=== PATIENT | female | born 1985 | race Two or more races ===

== ENCOUNTER 2021-07-20 02:26 | Inpatient (IN) | payer OTHER ==
[~2021-07-20] VITALS: Ht 149.9 cm; Wt 80.3 kg
[2021-07-21] MEDS ORDERED: FAMOTIDINE20 MG (08:17)
[2021-07-23] MEDS ORDERED: AMOX-CLAV 875-1 EAC1 PO (18:37)
[2021-07-23] MEDS ORDERED: PEPCID AC20 MG PO (18:37)
[2021-07-23] MEDS ORDERED: INTESTINEX680 M1 PO (18:37)
== END 2021-07-23 22:29 | disposition home or self-care (01) | DRG 391 ==
LOC: ER 02:26 → MEDJ 17:15 → SURH 07-21 18:23
PROVIDERS: ADMIT Internal Medicine Geriatric Medicine; ATTEND Internal Medicine Geriatric Medicine
PROC: BW2110Z Computerized Tomography (CT Scan) of Abdomen and Pelvis using Low Osmolar Contrast, Unenhanced and Enhanced (ICD-10-PCS; principal; 2021-07-20)
PROC: 05HY33Z Insertion of Infusion Device into Upper Vein, Percutaneous Approach (ICD-10-PCS; 2021-07-20)
PROC: 8E0ZXY6 Isolation (ICD-10-PCS; 2021-07-20)
PROC: 4A12X4Z Monitoring of Cardiac Electrical Activity, External Approach (ICD-10-PCS; 2021-07-20)
DX: K57.92 Diverticulitis of intestine, part unspecified, without perforation or abscess without bleeding (principal); K85.90 Acute pancreatitis without necrosis or infection, unspecified; Z20.822 Contact with and (suspected) exposure to COVID-19

== ENCOUNTER 2021-08-06 18:43 | Emergency (ER) | payer OTHER ==
[~2021-08-06] VITALS: Ht 149.9 cm; Wt 78.5 kg
[~2021-08-06 18:43] MED LIST: AMOX-CLAV 875-1 EAC1 PO; FAMOTIDINE20 MG; INTESTINEX680 M1 PO; PEPCID AC20 MG PO
[2021-08-06] MEDS ORDERED: INTESTINEX680 M1 PO (22:19)
[2021-08-06] MEDS ORDERED: AMOX-CLAV 875-1 EACH PO (22:19)
[2021-08-06] MEDS ORDERED: PEPCID AC20 MG PO (22:19)
== END 2021-08-06 22:48 | disposition home or self-care (01) ==
LOC: ER 18:43
DX: R10.9 Unspecified abdominal pain (principal)

== ENCOUNTER 2021-09-29 11:30 | Inpatient (IN) | payer OTHER ==
[~2021-09-29] VITALS: Ht 149.9 cm; Wt 78.9 kg
[~2021-09-29 11:30] MED LIST changes: +AMOX-CLAV 875-1 EACH PO
== END 2021-10-07 15:22 | disposition home or self-care (01) | DRG 331 ==
LOC: SURH 10-04 06:20 → O/R 10-04 06:20 → SURH 10-04 10:45
PROVIDERS: ADMIT Colon & Rectal Surgery; ATTEND Colon & Rectal Surgery
PROC: 0DBP4ZZ Excision of Rectum, Percutaneous Endoscopic Approach (ICD-10-PCS; 2021-10-04)
PROC: 0DTN4ZZ Resection of Sigmoid Colon, Percutaneous Endoscopic Approach (ICD-10-PCS; principal; 2021-10-04 10:45)
DX: K57.32 Diverticulitis of large intestine without perforation or abscess without bleeding (principal); R10.9 Unspecified abdominal pain; E66.8 Other obesity; Z90.5 Acquired absence of kidney

== ENCOUNTER 2022-06-10 20:26 | Emergency (ER) | payer OTHER ==
[~2022-06-10] VITALS: Ht 149.9 cm; Wt 74.8 kg
[2022-06-10] MEDS ORDERED: METOPROLOL SUCC50 MG PO (21:11)
[2022-06-11] MEDS ORDERED: BACTRIM DS TAB1 EACH PO (01:57)
== END 2022-06-11 02:12 | disposition home or self-care (01) ==
LOC: ER 20:26
DX: N39.0 Urinary tract infection, site not specified (principal); Z88.8 Allergy status to other drugs, medicaments and biological substances

== ENCOUNTER 2023-09-20 09:01 | Emergency (ER) | payer OTHER ==
[~2023-09-20] VITALS: Ht 149.9 cm; Wt 76.7 kg
[~2023-09-20 09:01] MED LIST changes: +BACTRIM DS TAB1 EACH PO; +METOPROLOL SUCC50 MG PO
[2023-09-20 11:03] LABS: HEMATOCRIT 39.2 % (36.0-45.00); HEMOGLOBIN 13.4 g/dL (12.0-15.00); MEAN CELL VOLUME 86.1 fL (80.00-100.00); MEAN CORPUSCULAR HEMOGLOBIN 29.5 pg (27.00-32.0); MEAN CORPUSCULAR HGB CONC 34.2 g/dl (32.0-36.0); PLATELET COUNT 281 K/uL (150-450); RED BLOOD COUNT 4.55 M/uL (4.00-6.00); RED CELL DISTRIBUTION WIDTH 13.2 % (11.5-14.5)
[2023-09-20 11:10] LABS: CALCIUM 9.3 mg/dL (8.5-10.1); CREATININE SERUM 0.73 mg/dL (0.55-1.02); GFR 89.22; POTASSIUM 3.94 mEq/L (3.5-5.1)
[2023-09-20 11:53] LABS: PH,URINE 5.5 (5.0-8.0); URINE APPEARANCE Clear; URINE BILIRRUBIN Negative (NEGATIVE); URINE BLOOD Moderate; URINE COLOR Yellow; URINE GLUCOSE Negative (NEGATIVE); URINE LEUKOCYTE Negative; URINE NITRATE Negative; URINE PROTEIN Negative (NEGATIVE); URINE UROBILINOGEN 0.2 E.U./dl
[2023-09-20 11:56] LABS: URINE BACTERIA 109.5 uL (0.0-1933); URINE EPITHELIAL CELLS 24.4 uL (0.0-38.8); URINE RBC 58.4 uL (0.0-20.8); URINE WBC 12.6 uL (0.0-23.2)
[2023-09-20] MEDS ORDERED: KETO10TA2 PO (18:47)
[2023-09-20] MEDS ORDERED: PEPCID AC20 MG PO (18:47)
[2023-09-20] MEDS ORDERED: DUI500 PO (18:47)
== END 2023-09-20 19:06 | disposition home or self-care (01) ==
LOC: ER 09:02
PROVIDERS: Emergency Medicine
DX: N83.209 Unspecified ovarian cyst, unspecified side (principal); R10.9 Unspecified abdominal pain; I10 Essential (primary) hypertension; Z88.1 Allergy status to other antibiotic agents; Z88.5 Allergy status to narcotic agent
CPT/HCPCS: 36415; 74177; Q9965; 76830